=== PATIENT | male | born 1960 | race Caucasian/White ===

== ENCOUNTER → 2017-08-30 | Outpatient (CLI) | payer OTHER ==
[~2017-08-30] MED LIST: ANDROGEL; ANDROGEL1.25 GM; ANDROGEL1.25 GM TD; CELEBREX 200 M200 MG PO; CIALIS20 MG PO; COLACE100 MG PO; DAILY MULTIPLE1 EACH PO; FLEXERIL; FLEXERIL PO; HYDROCODON-ACE1 EAC7 PO; IBUPROFEN 600600 M1 PO; NEXIUM40 MG PO; NORCO 10-325 T1 EACH PO; NORCO 5-325 TA1 EACH PO; PERCOCET 5-3251 EACH PO; ROBAXIN 750 MG750 M1 PO; UNICOMPLEX M TA1 TA1 PO; VALIUM2 MG PO; WELLBUTRIN SR150 MG PO
== END ==
LOC: CAT 10:18
DX: Z13.6 Encounter for screening for cardiovascular disorders (principal)